=== PATIENT | male | born 1970 | race Caucasian/White ===

== ENCOUNTER 2017-05-15 23:15 | Emergency (ER) | payer OTHER ==
[~2017-05-15] VITALS: Ht 193 cm; Wt 113.4 kg
== END 2017-05-16 01:18 | disposition home or self-care (01) ==
LOC: ED 23:15
DX: Z57.5 Occupational exposure to toxic agents in other industries (principal); R05 Cough; R11.10 Vomiting, unspecified; R07.89 Other chest pain

== ENCOUNTER → 2024-08-12 | Outpatient (CLI) | payer BC ==
[2024-08-12 12:04] LABS: BASO # 0.1 10*3/uL (0.0-0.1); BASO % 0.8 % (0.0-1.0); EOS # 0.3 10*3/uL (0.0-0.4); EOS % 4.4 % (1.0-4.0); HEMATOCRIT 51.5 % (42.0-52.0); MEAN CELL VOLUME 90.5 fl (80.0-94.0); MEAN CORPUSCULAR HGB 30.9 pg (27.0-31.0); MEAN CORPUSCULAR HGB CONC 34.2 g/dl (33.0-37.0); MEAN PLATELET VOLUME 9.4 fl (9.6-12.3); MONO # 0.5 10*3/uL (0.1-1.0); MONO % 8.1 % (3.0-9.0); NEUT # 3.8 10*3/uL (2.3-7.9); NEUT % 61.8 % (47.0-73.0); PLATELET COUNT AUTOMATED 310 10*3/uL (130-400); RED BLOOD COUNT 5.69 10*6/uL (4.50-5.90); RED CELL DISTRI WIDTH 13.1 % (0-14.5); WHITE BLOOD COUNT 6.2 10*3/uL (4.8-10.8)
[2024-08-12 12:38] LABS: ALKALINE PHOSPHATASE 105 U/L (46-116); BUN 17 mg/dl (9-23); CHLORIDE 105 mmol/L (98-107); CHOLESTEROL 236 mg/dL (<200); LDL CHOLESTEROL 156 mg/dL (9-159); POTASSIUM 3.9 mmol/L (3.4-5.1); SGPT/ALT 28 U/L (5-49); TOTAL PROTEIN 7.6 gm/dL (6.0-8.0); TRIGLYCERIDES 215 mg/dl (<150)
== END | disposition home or self-care (01) ==
LOC: LAB 11:29
PROVIDERS: ATTEND Nurse Practitioner Primary Care
DX: Z12.5 Encounter for screening for malignant neoplasm of prostate (principal); E78.00 Pure hypercholesterolemia, unspecified; Z68.29 Body mass index [BMI] 29.0-29.9, adult